=== PATIENT | male | born 1970 | race Caucasian/White ===

== ENCOUNTER 2025-03-02 04:46 | Inpatient (IN) | payer BC, OTHER ==
[~2025-03-02] VITALS: Ht 167.6 cm; Wt 83.9 kg
[2025-03-02] VITALS (10 sets, daily range): BP systolic 99–112; BP diastolic 65–83; PULSE 71–89; RESP 16–18; TEMP 97.6–98.6; O2SAT 96–100
[2025-03-02] MEDS: SODIUM CHLORIDE 0.9% 1000ML 1,000 ML IV SCH (01:00)
[~2025-03-02 04:46] MED LIST: CEFDINIR300 MG PO; KETOROLAC TROME10 MG PO; ONDANSETRON ODT4 MG SL
[2025-03-02] MEDS: SODIUM CHLORIDE 0.9% 1000ML 1,000 ML IV STA (05:05)
[2025-03-02] MEDS: KETOROLAC TROMETHAMINE 30 MG/ML VIAL IV STA (05:09)
[2025-03-02] MEDS: ONDANSETRON HCL INJ 2MG/ML 2ML 2 MG/ML VIAL IV STA (05:10)
[2025-03-02 05:14] LABS: BASOPHILS % 0.3 % (0.0-1.0); EOSINOPHILS % 1.0 % (0.0-6.0); LYMPHOCYTES % 14.1 % (18.0-39.1); MONOCYTES % 7.9 % (4.4-11.3); NEUTROPHILS % 76.4 % (38.7-80.0); RED CELL DISTRIBUTION WIDTH 13.1 % (11.7-14.4)
[2025-03-02 05:26] LABS: EST GLOMERULAR FILTRATION RATE 36.0 ML/MIN (>=60)
[2025-03-02] MEDS: Morphine 4mg INJECTION 4 MG/ML INJ IV ONE (06:39)
[2025-03-02] MEDS ORDERED: ONDANSETRON HCL INJ 2MG/ML 2ML 2 MG/ML VIAL IV PRN (08:00)
[2025-03-02 08:06] LABS: LEUKOCYTE ESTERASE ,URINE NEGATIVE (NEGATIVE); PROTEIN,URINE DIPSTICK NEGATIVE (NEGATIVE); URINE UROBILINOGEN 0.2 mg/dL (0.2 - 1)
[2025-03-02 08:31] LABS: EPITHELIAL CELLS,URINE FEW /LPF
[2025-03-02] MEDS: Morphine 4mg INJECTION 4 MG/ML INJ IV PRN (12:15)
[2025-03-02] MEDS ORDERED: MELATONIN 5 MG TABLET PO PRN (16:30)
[2025-03-02] MEDS ORDERED: POTASSIUM CHLORIDE 20 MEQ TAB CR PO PRN (16:30)
[2025-03-02] MEDS ORDERED: BENZONATATE 100 MG CAP PO PRN (16:30)
[2025-03-02] MEDS ORDERED: LIDOCAINE 4% PATCH TP PRN (16:30)
[2025-03-02] MEDS ORDERED: DIPHENHYDRAMINE HCL 25 MG CAP PO PRN (16:30)
[2025-03-02] MEDS ORDERED: ACETAMINOPHEN 325 MG TAB PO PRN (16:30)
[2025-03-02] MEDS ORDERED: HYDRALAZINE HCL 20 MG/ML VIAL IV PRN (16:30)
[2025-03-02] MEDS ORDERED: ALBUTEROL/IPRATROPIUM 3 ML NEB NEB PRN (16:30)
[2025-03-02] MEDS ORDERED: DEXTROSE 50% SYRINGE 50 ML IV PRN (16:30)
[2025-03-02] MEDS ORDERED: Morphine 4mg INJECTION 4 MG/ML INJ IV PRN (16:30)
[2025-03-02] MEDS ORDERED: SIMETHICONE 80 MG CHEW PO PRN (16:30)
[2025-03-02] MEDS ORDERED: DOCUSATE SODIUM 100 MG CAP PO PRN (16:30)
[2025-03-02] MEDS: ENOXAPARIN SOD INJ 40 MG/0.4 ML SYR SC SCH (17:57)
[2025-03-02] MEDS: TAMSULOSIN HCL 0.4 MG CAP PO SCH (21:21)
[2025-03-03] VITALS (8 sets, daily range): BP systolic 105–142; BP diastolic 65–90; PULSE 75–82; RESP 18–20; TEMP 97.5–99; O2SAT 95–99
[2025-03-03 05:55] LABS: BASOPHILS % 0.3 % (0.0-1.0); EOSINOPHILS % 1.1 % (0.0-6.0); LYMPHOCYTES % 25.5 % (18.0-39.1); MONOCYTES % 9.9 % (4.4-11.3); NEUTROPHILS % 62.8 % (38.7-80.0); RED CELL DISTRIBUTION WIDTH 13.3 % (11.7-14.4)
[2025-03-03 06:27] LABS: EST GLOMERULAR FILTRATION RATE 68.0 ML/MIN (>=60)
[2025-03-03] MEDS: PANTOPRAZOLE SOD 40 MG TABEC PO SCH (09:30)
[2025-03-03] MEDS: ONDANSETRON HCL INJ 2MG/ML 2ML 2 MG/ML VIAL IV PRN (22:03)
[2025-03-04] VITALS (9 sets, daily range): BP systolic 116–135; BP diastolic 70–91; PULSE 67–87; RESP 18–22; TEMP 96.8–98.7; O2SAT 96–98
[2025-03-04 06:38] LABS: BASOPHILS % 0.4 % (0.0-1.0); EOSINOPHILS % 1.8 % (0.0-6.0); LYMPHOCYTES % 23.5 % (18.0-39.1); MONOCYTES % 8.5 % (4.4-11.3); NEUTROPHILS % 65.5 % (38.7-80.0); RED CELL DISTRIBUTION WIDTH 13.2 % (11.7-14.4)
[2025-03-04 07:06] LABS: EST GLOMERULAR FILTRATION RATE 95.0 ML/MIN (>=60)
[2025-03-04] MEDS ORDERED: FENTANYL CITRATE/PF 100MCG/2 ML INJ ONE (07:41)
[2025-03-04] MEDS ORDERED: PROPOFOL IV EMULSION 10 MG/ML 20 ML VIAL ONE (07:41)
[2025-03-04] MEDS ORDERED: LIDOCAINE HCL 2% LOCAL INJ 5 ML SDV VIAL INJ ONE (07:41)
[2025-03-04] MEDS ORDERED: SUCCINYLCHOLINE CHLORIDE 20 MG/ML 10ML VIAL ONE (08:05)
[2025-03-04] MEDS ORDERED: METOCLOPRAMIDE HCL 10 MG/2ML VIAL ONE (08:10)
[2025-03-04] MEDS ORDERED: DEXAMETHASONE SOD PHOS INJ 4 MG/ML SDV ONE (08:10)
[2025-03-04] MEDS ORDERED: KETOROLAC TROMETHAMINE 30 MG/ML VIAL ONE (08:10)
[2025-03-04] MEDS ORDERED: ONDANSETRON HCL INJ 2MG/ML 2ML 2 MG/ML VIAL ONE (08:10)
[2025-03-04] MEDS: HYDROCODONE/APAP 5MG-325MG TAB PO PRN (13:32)
[2025-03-04] MEDS: PHENAZOPYRIDINE HCL 100 MG TAB PO SCH (16:35)
[2025-03-04] MEDS: KETOROLAC TROMETHAMINE 30 MG/ML VIAL IV SCH (16:36)
[2025-03-05] VITALS: BP 122/85; PULSE 82; RESP 18; TEMP 98; O2SAT 96
[2025-03-05 04:00] VITALS: BP 107/68; PULSE 80; RESP 18; TEMP 98.2; O2SAT 98
[2025-03-05 07:03] LABS: EST GLOMERULAR FILTRATION RATE 65.0 ML/MIN (>=60)
[2025-03-05 08:00] VITALS: BP 128/88; PULSE 85; PULSE 86; RESP 18; RESP 20; TEMP 97.9; O2SAT 94; O2SAT 95
[2025-03-05 09:00] VITALS: BP 128/88; PULSE 86; RESP 20; TEMP 97.9; O2SAT 94
== END 2025-03-05 11:30 | disposition home or self-care (01) | DRG 660 ==
LOC: ER 04:56 → ERHOLD 08:00 → MED/SURG3 11:08
PROVIDERS: ADMIT Internal Medicine; ATTEND Internal Medicine
PROC: 0TC78ZZ Extirpation of Matter from Left Ureter, Via Natural or Artificial Opening Endoscopic (ICD-10-PCS; 2025-03-04)
PROC: 0T778ZZ Dilation of Left Ureter, Via Natural or Artificial Opening Endoscopic (ICD-10-PCS; principal; 2025-03-04 08:02)
PROC: BT171ZZ Fluoroscopy of Left Ureter using Low Osmolar Contrast (ICD-10-PCS; 2025-03-04 08:02)
DX: N20.1 Calculus of ureter (principal); N13.1 Hydronephrosis with ureteral stricture, not elsewhere classified; N23 Unspecified renal colic; I10 Essential (primary) hypertension; R11.2 Nausea with vomiting, unspecified; Z88.0 Allergy status to penicillin
CPT/HCPCS: 36415; 74018; 74176; 74420; 80048; 80053; 81001; 83690; 85014; 85018; 85025; 88300; 94799; 99284; C1758; J0330; J0696; J1100; J1650; J1885; J2003; J2270; J2405; J2470; J2765; J7030

== ENCOUNTER 2025-03-06 21:09 | Inpatient (IN) | payer BC, OTHER ==
[~2025-03-06] VITALS: Ht 167.6 cm; Wt 85.3 kg
[2025-03-06] MEDS ORDERED: ONDANSETRON HCL INJ 2MG/ML 2ML 2 MG/ML VIAL ONE (21:25)
[2025-03-06] MEDS: ONDANSETRON HCL INJ 2MG/ML 2ML 2 MG/ML VIAL IV STA (21:28)
[2025-03-06] MEDS: KETOROLAC TROMETHAMINE 30 MG/ML VIAL IV STA (21:33)
[2025-03-06 22:08] LABS: BASOPHILS % 0.5 % (0.0-1.0); EOSINOPHILS % 1.5 % (0.0-6.0); LYMPHOCYTES % 8.5 % (18.0-39.1); MONOCYTES % 7.0 % (4.4-11.3); NEUTROPHILS % 82.4 % (38.7-80.0); RED CELL DISTRIBUTION WIDTH 13.0 % (11.7-14.4)
[2025-03-06 22:27] LABS: EST GLOMERULAR FILTRATION RATE 51.0 ML/MIN (>=60)
[2025-03-06 22:50] LABS: LEUKOCYTE ESTERASE ,URINE NEGATIVE (NEGATIVE); PROTEIN,URINE DIPSTICK NEGATIVE (NEGATIVE); URINE UROBILINOGEN 0.2 mg/dL (0.2 - 1)
[2025-03-06 23:01] LABS: EPITHELIAL CELLS,URINE FEW /LPF
[2025-03-06 23:55] VITALS: PULSE 71; RESP 18; O2SAT 96
[2025-03-07] VITALS (7 sets, daily range): BP systolic 109–160; BP diastolic 79–100; PULSE 70–102; RESP 16–20; TEMP 98–99.2; O2SAT 95–98
[2025-03-07] MEDS: SODIUM CHLORIDE 0.9% 1000ML 1,000 ML IV SCH (00:25)
[2025-03-07] MEDS: ONDANSETRON HCL INJ 2MG/ML 2ML 2 MG/ML VIAL IV PRN (05:17)
[2025-03-07] MEDS: Morphine 4mg INJECTION 4 MG/ML INJ IV PRN (05:17)
[2025-03-07 06:18] LABS: BASOPHILS % 0.4 % (0.0-1.0); EOSINOPHILS % 2.8 % (0.0-6.0); LYMPHOCYTES % 17.6 % (18.0-39.1); MONOCYTES % 7.3 % (4.4-11.3); NEUTROPHILS % 71.7 % (38.7-80.0); RED CELL DISTRIBUTION WIDTH 13.0 % (11.7-14.4)
[2025-03-07 06:34] LABS: EST GLOMERULAR FILTRATION RATE 62.0 ML/MIN (>=60)
[2025-03-07] MEDS ORDERED: CIPRO500 MG PO (07:18)
[2025-03-07] MEDS ORDERED: HYDROCODON-ACE1 EAC9 PO (07:18)
[2025-03-07] MEDS ORDERED: FLOMAX0.4 MG PO (07:18)
[2025-03-07] MEDS: KETOROLAC TROMETHAMINE 30 MG/ML VIAL IV STA (07:45)
[2025-03-07] MEDS ORDERED: DIPHENHYDRAMINE HCL 25 MG CAP PO PRN (13:15)
[2025-03-07] MEDS ORDERED: DEXTROSE 50% SYRINGE 50 ML IV PRN (13:15)
[2025-03-07] MEDS ORDERED: SIMETHICONE 80 MG CHEW PO PRN (13:15)
[2025-03-07] MEDS ORDERED: POTASSIUM CHLORIDE 20 MEQ TAB CR PO PRN (13:15)
[2025-03-07] MEDS ORDERED: HYDROCODONE/APAP 5MG-325MG TAB PO PRN (13:15)
[2025-03-07] MEDS ORDERED: MELATONIN 5 MG TABLET PO PRN (13:15)
[2025-03-07] MEDS ORDERED: HYDRALAZINE HCL 20 MG/ML VIAL IV PRN (13:15)
[2025-03-07] MEDS ORDERED: ALBUTEROL/IPRATROPIUM 3 ML NEB NEB PRN (13:15)
[2025-03-07] MEDS ORDERED: DOCUSATE SODIUM 100 MG CAP PO PRN (13:15)
[2025-03-07] MEDS ORDERED: ACETAMINOPHEN 325 MG TAB PO PRN (13:15)
[2025-03-07] MEDS ORDERED: LIDOCAINE 4% PATCH TP PRN (13:15)
[2025-03-07] MEDS ORDERED: BENZONATATE 100 MG CAP PO PRN (13:15)
[2025-03-07] MEDS: ENOXAPARIN SOD INJ 40 MG/0.4 ML SYR SC SCH (16:59)
[2025-03-08] VITALS: BP 151/101; PULSE 85; RESP 20; TEMP 98.9; O2SAT 96
[2025-03-08 04:00] VITALS: BP 147/91; PULSE 74; RESP 20; TEMP 98.7; O2SAT 97
[2025-03-08 05:30] LABS: BASOPHILS % 0.8 % (0.0-1.0); EOSINOPHILS % 3.1 % (0.0-6.0); LYMPHOCYTES % 21.3 % (18.0-39.1); MONOCYTES % 10.3 % (4.4-11.3); NEUTROPHILS % 64.2 % (38.7-80.0); RED CELL DISTRIBUTION WIDTH 13.1 % (11.7-14.4)
[2025-03-08 06:01] LABS: EST GLOMERULAR FILTRATION RATE 72.0 ML/MIN (>=60)
[2025-03-08 08:00] VITALS: BP 162/99; PULSE 72; RESP 18; TEMP 98.7; O2SAT 94
[2025-03-08] MEDS: PANTOPRAZOLE SOD 40 MG TABEC PO SCH (09:06)
[2025-03-08] MEDS: TAMSULOSIN HCL 0.4 MG CAP PO SCH (09:06)
[2025-03-08 09:11] VITALS: BP 162/99; PULSE 72; RESP 18; TEMP 98.7; O2SAT 94
[2025-03-08 12:11] VITALS: BP 148/99; PULSE 80; RESP 19; TEMP 98; O2SAT 98
== END 2025-03-08 17:00 | disposition home or self-care (01) | DRG 690 ==
LOC: ER 22:15 → ERHOLD 23:34 → MED/SURG 03-07 12:34 → OBSVTOIN 03-08 13:16
PROVIDERS: ADMIT Internal Medicine; ATTEND Internal Medicine
DX: N13.6 Pyonephrosis (principal); N17.9 Acute kidney failure, unspecified; I10 Essential (primary) hypertension; Z83.3 Family history of diabetes mellitus; Z82.49 Family history of ischemic heart disease and other diseases of the circulatory system; Z87.442 Personal history of urinary calculi; Z88.0 Allergy status to penicillin
CPT/HCPCS: 36415; 74176; 80048; 80053; 81001; 85025; 87086; 94799; 99284; G0378; J0696; J1650; J1885; J2270; J2405; J2470; J7030

== ENCOUNTER 2025-06-15 20:19 | Emergency (ER) | payer BC, OTHER ==
[~2025-06-15] VITALS: Ht 167.6 cm; Wt 81.6 kg
[~2025-06-15 20:19] MED LIST changes: +CIPRO500 MG PO; +FLOMAX0.4 MG PO; +HYDROCODON-ACE1 EAC9 PO
[2025-06-15 20:30] VITALS: RESP 17; TEMP 97.8
[2025-06-15 21:03] LABS: BASOPHILS % 0.8 % (0.0-1.0); EOSINOPHILS % 1.7 % (0.0-6.0); LYMPHOCYTES % 32.1 % (18.0-39.1); MONOCYTES % 6.5 % (4.4-11.3); NEUTROPHILS % 58.7 % (38.7-80.0); RED CELL DISTRIBUTION WIDTH 13.2 % (11.7-14.4)
[2025-06-15] MEDS: KETOROLAC TROMETHAMINE 30 MG/ML VIAL IV STA (21:20)
[2025-06-15 21:24] LABS: EST GLOMERULAR FILTRATION RATE 101.0 ML/MIN (>=60)
[2025-06-15 21:30] VITALS: PULSE 70
[2025-06-15] MEDS ORDERED: KETOROLAC TROME10 MG PO (22:19)
[2025-06-15 22:41] VITALS: BP 121/73; O2SAT 98
== END 2025-06-15 22:32 | disposition home or self-care (01) ==
LOC: ER 20:36
DX: R07.89 Other chest pain (principal); S29.011A Strain of muscle and tendon of front wall of thorax, initial encounter; R10.9 Unspecified abdominal pain; X50.1XXA Overexertion from prolonged static or awkward postures, initial encounter; Y92.89 Other specified places as the place of occurrence of the external cause
CPT/HCPCS: 36415; 71250; 74176; 80053; 83690; 85025; 99284; J1885